=== PATIENT | male | born 1980 | race Caucasian/White ===

== ENCOUNTER 2022-11-24 11:36 | Emergency (ER) | payer MEDICAID ==
[~2022-11-24] VITALS: Ht 185.4 cm; Wt 72.0 kg
[~2022-11-24 11:36] MED LIST: ALBU18HF2 INH; DOCU-28 PO; PROCHC RC
[2022-11-24] MEDS ORDERED: oxyCODONE/APAP 5-325mg tablet PO ONE (12:10)
[2022-11-24] MEDS ORDERED: ketorolac trometh inj. 60 MG/2 ML VIAL IM ONE (12:10)
[2022-11-24] MEDS ORDERED: NO HOME MEDS (12:35)
[2022-11-24 13:25] VITALS: BP 129/92
[2022-11-24] MEDS ORDERED: morphine 2 MG/ML inj. syringe IM ONE (13:50)
[2022-11-24] MEDS ORDERED: ondansetron 4mg rapidly disintigrating tab PO ONE (13:50)
[2022-11-24] MEDS ORDERED: BACL-11 PO (13:58)
[2022-11-24] MEDS ORDERED: ONDA4TAB12 PO (13:58)
[2022-11-24] MEDS ORDERED: TRAM1TAB7 PO (13:58)
== END 2022-11-24 14:22 | disposition home or self-care (01) ==
LOC: ER 11:37
DX: S39.012A Strain of muscle, fascia and tendon of lower back, initial encounter (principal); Z88.0 Allergy status to penicillin; Z79.899 Other long term (current) drug therapy; X58.XXXA Exposure to other specified factors, initial encounter; Y93.89 Activity, other specified; Y92.89 Other specified places as the place of occurrence of the external cause; Y99.8 Other external cause status
CPT/HCPCS: 72100; 96372; 99284; J1885; J2270